=== PATIENT | male | born 1985 | race American Indian/Alaskan Native ===

== ENCOUNTER 2024-06-27 21:57 | Emergency (ER) | payer OTHER, SELFPAY ==
[2024-06-27 22:00] VITALS: BP 124/90
[2024-06-27 22:25] LABS: % Basophils 0.3 % (0-2); % Eosinophils 0.2 % (0-6); % Immature Granulocytes 0.1 % (0-0.5); % Lymphocytes 19.9 % (20.5-51.1); % Monocytes 10.3 % (1.7-9.3); % Neutrophils 69.2 % (42.2-75.2); Absolute Lymphocytes 1.8 10^3/uL (1.2-3.4); Absolute Neutrophils 6.4 10^3/uL (1.4-6.5); Hematocrit 41.3 % (39.0-52.0); Hemoglobin 14.8 g/dL (13.0-18.0); Mean Corp Hgb Conc. 35.8 g/dL (33.0-37.0); Mean Corpuscular Hgb 29.6 pg (27.0-31.0); Mean Corpuscular Volume 82.6 fL (80.0-94.0); Mean Platelet Volume 9.8 fL (7.4-10.4); Nucleated Red Blood Cells % 0 % (-); Platelet Count 276 10^3/uL (130-400); Red Cell Dist. Width 11.8 % (11.5-14.5); White Blood Cell Count 9.3 10^3/uL (4.8-10.8)
[2024-06-27 22:33] LABS: ALT (SGPT) 35 U/L (0-50); AST (SGOT) 38 U/L (17-59); Albumin 4.7 g/dl (3.5-5.0); Alkaline Phosphatase 54 U/L (38-126); Blood Urea Nitrogen 14 mg/dl (9-20); Calcium 9.9 mg/dl (8.4-10.2); Carbon Dioxide 27 mmol/L (22-30); Chloride 102 mmol/L (98-107); Glucose 92 mg/dl (70-99); Potassium 4.1 mmol/L (3.5-5.1); Sodium 139 mmol/L (135-145); Total Bilirubin 1.6 mg/dl (0.2-1.3); Total Protein 7.5 g/dl (6.3-8.2); eGFR > 60.00
[2024-06-27 22:45] LABS: Troponin I < 0.012 ng/ml
--- NOTE | 2024-06-27 23:56 | ED.GENMED ---
History of Present Illness
General
Chief Complaint: Headache
Time Seen by Provider: 06/27/24 23:17
History of Present Illness
History of Present Illness:
38-year-old male presents to the emergency department for evaluation of headache, 1 episode of vomiting, and mild dizziness that began earlier today. He states he began feeling unwell, developed blurry vision and a gradually worsening but severe
headache, this headache culminated in an episode of vomiting. He did take Excedrin and has had gradual resolution of symptoms. Currently feels well with no complaints
Review of Systems
Review of Systems
Allergies reviewed?: Yes
All Other Systems: ROS reviewed and negative except as documented in HPI and ROS
Phy Exam
Physical Exam
Physical Exam:
GEN: Well appearing, NAD, WDWN
HEENT: Oral mucosa moist, no scleral icterus, no nasal congestion
Cardiac: Regular rate
Lung: No respiratory distress, no tachypnea
MSK: No gross deformity or injuries
Skin: Good color, no pallor or jaundice, no rashes
Neuro: AO x3; CN II-XII grossly intact. BUE strength 5/5 in all mart, sensation intact and symmetric. BLE strength 5/5 in all mart, sensation intact and symmetric
Psych: Calm, cooperative
Course
Orders/Labs/Results
Orders:
Orders
06/27/24 22:04
ECG [Electrocardiogram (*1)] Urgent
Reason for Study: Vertigo / Dizzy
EKG- Treatment ONCE
06/27/24 22:05
CT Head W/o Iv Contrast Urgent
Comment:
Reason For Exam: severe headache
06/27/24 22:10
Complete Blood Count/With Diff Urgent
Comprehensive Metabolic Panel Urgent
Troponin I Urgent
06/27/24 23:56
Sumatriptan Succinate [Imitrex] 25 mg PO NOW STA
Abnormal Lab Results
06/27/24
22:10
Absolute Monos (auto) 1.0 H 10^3/uL
(0.1-0.6)
Lymphocytes % 19.9 L %
(20.5-51.1)
Monocytes % 10.3 H %
(1.7-9.3)
Total Bilirubin 1.6 H mg/dl
(0.2-1.3)
06/27/24 22:10
06/27/24 22:10
Vital Signs
Initial and Last Documented VS:
Initial Vital Signs
Temp Pulse Resp BP Pulse Ox
98.9 F 80 18 124/90 99
06/27/24 22:00 06/27/24 22:00 06/27/24 22:00 06/27/24 22:00 06/27/24 22:00
Last Documented Vital Signs
Temp Pulse Resp BP Pulse Ox
98.9 F 80 18 124/90 99
06/27/24 22:00 06/27/24 22:00 06/27/24 22:00 06/27/24 22:00 06/27/24 22:00
MDM/Problems Addressed
MDM/Problems Addressed:
Likely migraine, symptoms have since resolved. Workup reassuring
Comment
Comment:
Initial EKG independently interpreted by me shows normal sinus rhythm at a rate of [address] changes concerning for ischemia although patient motion artifact in lead V2 and V3 limits interpretation
*Critical Care Note
Total Time (30-74mins, 75-104mins- exclusive of procedures): Not Applicable
ED Attending Note
-
Portions of this chart may have been created with voice recognition software.� Occasional wrong word or��sound alike� substitutions may have occurred due to the inherent limitations of voice recognition software.
Discharge Plan
Departure
Patient Disposition: Home (Routine Discharge)
Date of Disposition: 06/27/24
Time of Disposition: 23:57
Patient with high blood pressure during this ER visit?: No
Discharge Problem:
Migraine
Instructions: Migraines (DC)
Prescriptions:
New
sumatriptan succinate 25 mg tablet
25 - 50 mg PO ONCE PRN (Reason: migraine headache) Qty: 15 0RF
Referrals:
NONE,* [Family Provider] -
Interventions
Interventions:
*Risk Screen - Suicide Last Done: 06/27/24 22:00
*General Assessment Last Done: 06/27/24 22:00
*Nursing Disposition Last Done: 06/28/24 00:46
ED- Neurological Assessment Last Done: 06/28/24 00:46
Discharge Date and Time
Discharge Date/Time: 06/28/24 00:47
Print Language: ROMANSH
[2024-06-28] MEDS: IMITREX 25 MG PO (00:30)
== END 2024-06-28 00:47 | disposition home or self-care (01) ==
LOC: EMR 21:57
PROVIDERS: EMERGENCY PHYSICIAN Student in an Organized Health Care Education/Training Program
DX: G43.909 Migraine, unspecified, not intractable, without status migrainosus (principal); H53.8 Other visual disturbances; R11.10 Vomiting, unspecified; R42 Dizziness and giddiness
CPT/HCPCS: 99284; 70450; 80053; 84484; 85025; 93005